=== PATIENT | female | born 1995 | race Caucasian/White ===

== ENCOUNTER 2019-02-04 09:07 | Day surgery (SDC) | payer BC ==
[2019-02-04 09:18] LABS: Absolute Lymphocytes (CBC) 1.2 K/uL (0.7-4.9); Basophils % 0.5 % (0-1.3); Hematocrit 38.3 % (36.0-45.0); Lymphocytes % 19.5 % (15.3-44.8); MPV 11.1 fL (7.6-11.3); RBC Red Blood Cell Count 4.17 M/uL (3.86-4.86)
[2019-02-04 09:41] LABS: Albumin 3.7 g/dL (3.4-5.0); Bilirubin Direct 0.2 mg/dL (0-0.2); Bilirubin Total 0.7 mg/dL (0.2-1.0); Protein, Total 7.6 g/dL (6.4-8.2)
[2019-02-04] MEDS ORDERED: propofoL 200 MG/20 ML VIAL IV ONE (11:01)
[2019-02-04] MEDS ORDERED: GLYCOPYRROLATE 0.2 MG/ML SYR ONE (11:01)
[2019-02-04] MEDS ORDERED: dexAMETHasone 10 MG/ML VIAL ONE (11:01)
[2019-02-04] MEDS ORDERED: FENTANYL CITR 100 MCG/2 ML ONE (11:01)
[2019-02-04] MEDS ORDERED: LIDOCAINE 2% MPF 5 ML VIAL ONE (11:01)
[2019-02-04] MEDS ORDERED: MIDAZOLAM HCL 2 MG/2 ML INJ ONE (11:01)
[2019-02-04] MEDS ORDERED: ROCURONIUM 50 MG/5 ML VIAL IV ONE (11:04)
[2019-02-04] MEDS ORDERED: Ringers Lactate 1,000 ML IV ONE ×2 (11:04→13:34)
[2019-02-04] MEDS ORDERED: CEFOXITIN/SWI 1gm 1 GM/10 ML SYR ONE (11:26)
[2019-02-04] MEDS ORDERED: KETOROLAC 30 MG/ML INJ ONE (12:20)
[2019-02-04] MEDS ORDERED: PROMETHAZINE INJ 25 MG/ML AMP ONE (12:28)
--- NOTE | 2019-02-04 12:32 | P.BOP ---
Preoperative diagnosis: symptomatic cholelithiasis Postoperative diagnosis: same Primary procedure: Laparoscopic Cholecystectomy Tenoner Operator: JONATAN SANTOS (Bari) Estimated blood loss: <10cc Specimen: gb Findings: as above Anesthesia: General Complications: None Transferred to: Recovery Room Condition: Good
[2019-02-04 12:43] VITALS: O2SAT 100
[2019-02-04] MEDS ORDERED: ONDANSETRON 4 MG/2 ML VIAL ONE (13:03)
[2019-02-04] MEDS ORDERED: CODEINE 30MG/APAP 300MG TAB ONE (13:44)
[2019-02-04 13:49] VITALS: TEMP 97.7
[2019-02-04 14:31] VITALS: BP 109/63
--- NOTE | 2019-02-05 00:43 | DS ---
Date of Discharge: 02/04/2019 Diagnosis: Symptomatic cholelithiasis. Procedure: Laparoscopic cholecystectomy. Disposition: Home. Activity: As tolerated. No heavy lifting. Followup: Follow up in my office in 1 week. Call for appointment [phone]. Keep area dry for 48 ho urs then may shower. Keep Steri-Strips intact. Medications: Include Tylenol No. 3 q.4 hours p.r.n. pain, Bactrim DS p.o. b.i.d. MARY/MACKENZIE Voice ID: [id number] Report ID: [id number]
--- NOTE | 2019-02-05 00:43 | OP ---
Date of Procedure: 02/04/2019 Surgeon: Aric Jimenez MD Recreational Vehicle Repairer: BREONNA Snyder. Diagnosis: Symptomatic cholelithiasis. Postoperative Diagnosis: Symptomatic cholelithiasis. Procedure: Laparoscopic cholecystectomy. Estimated Blood Loss: Less than 10 mL. Specimen: Gallbladder. Anesthesia: General plus local. Indications: This is the case of a female who comes to us with above diagnosis. Fully explained the benefits, alternatives, and risks of laparoscopic, possible open cholecystectomy, which include but are not limited to infection, bleeding, damage to adjacent structures, anesthetic complication, akash docholithiasis, bile leak, pancreatitis, GA, and even . She also understands this may not relie ve the symptoms. She might need more than one surgical intervention. She understood, signed a conse nt. Description Of Procedure: Patient was brought to the operating room, placed in supine position. Ane sthesia was done without complication. Abdominal area was prepped and draped in a sterile fashion. Marcaine 0.5% was injected for local anesthetic, followed by sharp incision of the skin in the infrau mbilical region. Incision was carried down to fascia, which was opened under direct vision. Periton eum was encountered, opened under direct vision. Vicryl #1 placed inside the fascia. Anil trocar was carefully introduced. No bleeding was obtained. I placed 3 more trocars, 5 mm each one of them in the epigastric, right upper quadrant area and direct visualization. At that moment, I proceeded t o put a grasper in the fundus of the gallbladder, another grasper in the infundibulum, retracted the gallbladder in the inferolateral fashion exposing the triangle of Calot obtaining critical views of s afety. Cystic duct and cystic artery were clearly isolated, free circumferentially and a connection between those and the gallbladder was clearly identified. I proceeded to ligate those by using at le ast 3 clips proximal, 1 clip distal, ligation in middle. Same was done with the cystic artery. No b ile leak. No bleeding. The gallbladder was removed from liver using Bovie cauterizer and removed fr om abdominal cavity using EndoCatch through the umbilical incision. The area was inspected once agai n. No bile leak. No bleeding. At that moment, I proceeded to remove the trocars under direct visio n. Deflated the pneumoperitoneum. Closed the fascia with #1 Vicryl, irrigated subcu incision, close d that with 3-0 chromic and skin in a subcuticular fashion with 3-0 chromic and Steri-Strips on top. Sponge count and instrument counts were correct. Patient tolerated the procedure well. Patient was sent to recovery in stable condition. MARY/MACKENZIE Voice ID: [id number] Report ID: [id number]
== END 2019-02-04 14:35 | disposition home or self-care (01) ==
LOC: OR 09:07
PROVIDERS: ATTEND Surgery
PROC: 0FT44ZZ Resection of Gallbladder, Percutaneous Endoscopic Approach (ICD-10-PCS; principal; 2019-02-04 13:45)
DX: K80.10 Calculus of gallbladder with chronic cholecystitis without obstruction (principal); Z98.84 Bariatric surgery status; Z91.040 Latex allergy status; Z83.3 Family history of diabetes mellitus
CPT/HCPCS: 85025; 80048; 36415; 82150; 84703; 80076; 88304; 83690; 47562; J2704; J2550; J2250; J3010; J1100; J7120 ×2; J2405